=== PATIENT | female | born 1955 | race African-American/Black ===

== ENCOUNTER 2019-12-06 13:21 | Emergency (ER) | payer OTHER ==
[~2019-12-06] VITALS: Ht 172.7 cm; Wt 95.5 kg
[2019-12-06] MEDS ORDERED: ACET-2142 PO (13:33)
[2019-12-06] MEDS ORDERED: AMLO-258 PO (13:33)
[2019-12-06] MEDS ORDERED: CLON0.2T PO (13:33)
[2019-12-06] MEDS ORDERED: GABA-1181 PO (13:33)
[2019-12-06] MEDS ORDERED: HYDR200T4 PO (13:33)
[2019-12-06 15:57] VITALS: BP 128/80
== END 2019-12-06 15:59 | disposition home or self-care (01) ==
LOC: EMS 13:26
DX: L08.89 Other specified local infections of the skin and subcutaneous tissue (principal); I10 Essential (primary) hypertension; F17.290 Nicotine dependence, other tobacco product, uncomplicated; Z88.2 Allergy status to sulfonamides; Z79.899 Other long term (current) drug therapy
CPT/HCPCS: 99406

== ENCOUNTER 2019-12-08 10:47 | Emergency (ER) | payer OTHER ==
[~2019-12-08] VITALS: Ht 170.2 cm; Wt 101.8 kg
[~2019-12-08 10:47] MED LIST: ACET-2142 PO; AMLO-258 PO; CLON0.2T PO; GABA-1181 PO; HYDR200T4 PO
[2019-12-08 11:37] LABS: BASOPHILS % (AUTO) 0.6 % (0.0-2.0); EOSINOPHILS % (AUTO) 0.6 % (1.0-6.0); HEMOGLOBIN 14.6 g/dL (12.0-16.0); LYMPHOCYTES # (AUTO) 0.8 K/uL (1.0-4.8); MEAN CORPUSCULAR HEMOGLOBIN 27.7 pg (26.0-34.0); MEAN CORPUSCULAR HGB CONC 33.1 G/dL (31.0-37.0); MEAN CORPUSCULAR VOLUME 84 fL (80-100); MONOCYTES # (AUTO) 0.4 K/uL (0.1-1.0); MONOCYTES % (AUTO) 7.2 % (2.0-9.0); NEUTROPHILS % (AUTO) 76.6 % (40.0-70.0); PLATELET COUNT (AUTO) 188 K/uL (150-450); RED BLOOD CELL COUNT(AUTO) 5.26 MIL/uL (4.00-5.20); RED CELL DISTRIBUTION WIDTH 13.5 % (11.5-14.5)
[2019-12-08 11:45] LABS: ANION GAP 12 mmol/L (8-16); CALCIUM, TOTAL 8.5 mg/dL (8.8-10.5); CARBON DIOXIDE 26 mmol/L (22-29); CHLORIDE 104 mmol/L (98-107); CREATININE 1.05 mg/dL (0.60-1.30); GLOMERULAR FILTR. RATE CALC > 60 mL/min (>60); GLUCOSE,RANDOM 102 mg/dL (70-110); POTASSIUM 3.4 mmol/L (3.5-5.1); SODIUM SERUM 142 mmol/L (136-145); UREA NITROGEN, BLOOD 13 mg/dL (7-18)
[2019-12-08 11:52] LABS: ALANINE AMINOTRANSFERASE 15 U/L (12-78); ALBUMIN 3.7 g/dL (3.4-5.0); ALKALINE PHOSPHATASE 55 U/L (46-116); ASPARTATE AMINOTRANSFERASE 14 U/L (15-37); BILIRUBIN,TOTAL 0.4 mg/dL (0.1-1.0); SALICYLATE 8.9 mg/dL (2.8-20.0); TOTAL PROTEIN, SERUM 7.5 g/dL (6.4-8.2)
[2019-12-08 11:53] LABS: ACETAMINOPHEN < 2 mcg/mL (10-30)
[2019-12-08 13:04] VITALS: BP 141/78
== END 2019-12-08 13:07 | disposition home or self-care (01) ==
LOC: EMS 10:56
DX: T36.1X1A Poisoning by cephalosporins and other beta-lactam antibiotics, accidental (unintentional), initial encounter (principal); R11.2 Nausea with vomiting, unspecified; I10 Essential (primary) hypertension; Z88.2 Allergy status to sulfonamides; Z79.899 Other long term (current) drug therapy; Y92.89 Other specified places as the place of occurrence of the external cause
CPT/HCPCS: 36415; 80053; 85025; 99283; G0480; G0481

== ENCOUNTER 2019-12-31 11:34 | Emergency (ER) | payer OTHER ==
[~2019-12-31] VITALS: Ht 172.7 cm; Wt 90.9 kg
[~2019-12-31 11:34] MED LIST changes: -ACET-2142 PO
[2019-12-31 11:37] VITALS: BP 112/79
[2019-12-31] MEDS ORDERED: CEPHALEXIN MONOHYDRATE 500 MG CAPSULE PO ONE (14:00)
== END 2019-12-31 14:40 | disposition home or self-care (01) ==
LOC: EMS 11:39
DX: L97.529 Non-pressure chronic ulcer of other part of left foot with unspecified severity (principal)

== ENCOUNTER 2020-01-14 14:36 | Inpatient (IN) | payer OTHER ==
[~2020-01-14] VITALS: Ht 172.7 cm; Wt 96.0 kg
[2020-01-14] MEDS ORDERED: ACET-2142 PO (14:45)
[2020-01-14] MEDS ORDERED: GABA-1181 PO (14:45)
[2020-01-14] MEDS ORDERED: IBUPROFEN 400 MG TABLET PO ONE (16:00)
[2020-01-14] MEDS ORDERED: MORPHINE SULFATE 15 MG IR TABLET PO ONE (16:00)
[2020-01-14] MEDS ORDERED: MORPHINE SULFATE 4 MG/ML SYRINGE IVP ONE (16:15)
[2020-01-14 16:32] LABS: ANION GAP 6 mmol/L (8-16); CALCIUM, TOTAL 8.9 mg/dL (8.8-10.5); CARBON DIOXIDE 28 mmol/L (22-29); CHLORIDE 102 mmol/L (98-107); CREATININE 0.98 mg/dL (0.60-1.30); GLOMERULAR FILTR. RATE CALC > 60 mL/min (>60); GLUCOSE,RANDOM 85 mg/dL (70-110); POTASSIUM 4.1 mmol/L (3.5-5.1); SODIUM SERUM 136 mmol/L (136-145); UREA NITROGEN, BLOOD 6 mg/dL (7-18)
[2020-01-14 16:33] LABS: BASOPHILS % (AUTO) 0.8 % (0.0-2.0); EOSINOPHILS % (AUTO) 0.9 % (1.0-6.0); HEMATOCRIT 36.3 % (36-46); LYMPHOCYTES # (AUTO) 1.4 K/uL (1.0-4.8); LYMPHOCYTES % (AUTO) 18.9 % (22.0-44.0); MEAN CORPUSCULAR HEMOGLOBIN 27.5 pg (26.0-34.0); MEAN CORPUSCULAR VOLUME 83 fL (80-100); MONOCYTES # (AUTO) 0.8 K/uL (0.1-1.0); MONOCYTES % (AUTO) 10.9 % (2.0-9.0); NEUTROPHILS # (AUTO) 5.1 K/uL (1.8-7.7); NEUTROPHILS % (AUTO) 68.5 % (40.0-70.0); PLATELET COUNT (AUTO) 310 K/uL (150-450); RED BLOOD CELL COUNT(AUTO) 4.36 MIL/uL (4.00-5.20); RED CELL DISTRIBUTION WIDTH 13.5 % (11.5-14.5)
[2020-01-14 16:38] LABS: ALANINE AMINOTRANSFERASE 19 U/L (12-78); ALBUMIN 2.8 g/dL (3.4-5.0); ALKALINE PHOSPHATASE 63 U/L (46-116); ASPARTATE AMINOTRANSFERASE 17 U/L (15-37); BILIRUBIN,TOTAL 0.4 mg/dL (0.1-1.0); PROTHROMBIN TIME 10.3 SEC (9.4-11.6); TOTAL PROTEIN, SERUM 7.4 g/dL (6.4-8.2)
[2020-01-14] MEDS ORDERED: ASPIRIN 81 MG CHEWABLE TABLET PO ONE (19:00)
[2020-01-14] MEDS ORDERED: ONDANSETRON HCL 4 MG/2 ML VIAL IVP PRN ×2 (19:15→19:45)
[2020-01-14] MEDS ORDERED: ACETAMINOPHEN 325 MG TABLET PO PRN ×2 (19:15→19:45)
[2020-01-14] MEDS ORDERED: ASPIRIN 325 MG TABLET PO ONE (19:15)
[2020-01-14] MEDS ORDERED: 0.9% SODIUM CHLORIDE 10 ML SYRINGE IVP PRN (19:15)
[2020-01-14] MEDS: CloNIDine HCL 0.2 MG TABLET PO SCH (21:00)
[2020-01-14] MEDS: GABAPENTIN 300 MG CAPSULE PO SCH (21:00)
[2020-01-14 21:39] VITALS: BP 111/74
[2020-01-14] MEDS: MORPHINE SULFATE 2 MG/ML SYRINGE IVP PRN (22:07)
[2020-01-15] VITALS (7 sets, daily range): BP systolic 112–140; BP diastolic 66–79
[2020-01-15] MEDS: HEPARIN SODIUM,PORCINE 5,000 UNITS/ML VIAL SQ SCH ×3 (00:21→15:20)
[2020-01-15] MEDS: ACETAMINOPHEN/CODEINE 300-60 MG TABLET PO PRN ×2 (04:32→19:58)
[2020-01-15] MEDS ORDERED: PNEUMOCOCCAL VACCINE POLYVALENT 0.5 ML VIAL [PPSV23] IM ONE (06:00)
[2020-01-15] MEDS: HYDROXYCHLOROQUINE SULFATE 200 MG TABLET PO SCH (08:22)
[2020-01-15] MEDS: GABAPENTIN 300 MG CAPSULE PO SCH ×2 (08:26→19:58)
[2020-01-15] MEDS: ATORVASTATIN CALCIUM 40 MG TABLET PO SCH (08:31)
[2020-01-15] MEDS: AmLODIPine BESYLATE 10 MG TABLET PO SCH (08:31)
[2020-01-15] MEDS: ASPIRIN 81 MG CHEWABLE TABLET PO SCH (08:31)
[2020-01-15] MEDS: MORPHINE SULFATE 2 MG/ML SYRINGE IVP PRN ×3 (08:32→20:54)
[2020-01-15] MEDS: CloNIDine HCL 0.2 MG TABLET PO SCH (09:00)
[2020-01-15] MEDS: NICOTINE 21 MG/24 HOUR PATCH TD SCH (11:50)
[2020-01-15] MEDS: ATORVASTATIN CALCIUM 20 MG TABLET PO SCH (19:57)
[2020-01-16 00:27] VITALS: BP 149/96
[2020-01-16] MEDS: MORPHINE SULFATE 2 MG/ML SYRINGE IVP PRN ×4 (00:29→20:49)
[2020-01-16] MEDS: HEPARIN SODIUM,PORCINE 5,000 UNITS/ML VIAL SQ SCH ×4 (00:29→23:25)
[2020-01-16 04:00] VITALS: BP 158/89
[2020-01-16 07:47] LABS: BAND NEUTROPHILS % (MANUAL) 0 % (0-5)
[2020-01-16 07:51] LABS: HEMATOCRIT 38.5 % (36-46); HEMOGLOBIN 12.9 g/dL (12.0-16.0); MEAN CORPUSCULAR HEMOGLOBIN 27.9 pg (26.0-34.0); MEAN CORPUSCULAR HGB CONC 33.5 G/dL (31.0-37.0); MEAN CORPUSCULAR VOLUME 83 fL (80-100); PLATELET COUNT (AUTO) 318 K/uL (150-450); RED BLOOD CELL COUNT(AUTO) 4.61 MIL/uL (4.00-5.20); RED CELL DISTRIBUTION WIDTH 13.4 % (11.5-14.5)
[2020-01-16 08:14] LABS: ANION GAP 8 mmol/L (8-16); CARBON DIOXIDE 27 mmol/L (22-29); CHLORIDE 102 mmol/L (98-107); CHOL/HDL RATIO 2.4 (3.9-5.7); CHOLESTEROL 125 mg/dL (131-200); CREATININE 0.88 mg/dL (0.60-1.30); GLOMERULAR FILTR. RATE CALC > 60 mL/min (>60); GLUCOSE,RANDOM 90 mg/dL (70-110); HDL CHOLESTEROL 53 mg/dL (40-60); LDL CHOL (CALC.) 59 mg/dL (0-130); POTASSIUM 3.8 mmol/L (3.5-5.1); SODIUM SERUM 137 mmol/L (136-145); TRIGLYCERIDES 65 mg/dL (15-150); UREA NITROGEN, BLOOD 6 mg/dL (7-18); URIC ACID 4.6 mg/dL (2.6-7.2)
[2020-01-16 08:34] LABS: ERYTHROCYTE SEDIMENTATION RATE 24 MM/HR (0-20)
[2020-01-16 08:46] LABS: LYMPHOCYTES % (MANUAL) 17 % (22-44); MONOCYTES % (MANUAL) 8 % (2-9); SEGMENTED NEUTROPHILS % 75 % (40-70)
[2020-01-16 09:05] VITALS: BP 147/98
[2020-01-16] MEDS: GABAPENTIN 300 MG CAPSULE PO SCH ×2 (09:11→20:49)
[2020-01-16] MEDS: HYDROXYCHLOROQUINE SULFATE 200 MG TABLET PO SCH (09:11)
[2020-01-16] MEDS: ATORVASTATIN CALCIUM 40 MG TABLET PO SCH (09:11)
[2020-01-16] MEDS: AmLODIPine BESYLATE 10 MG TABLET PO SCH (09:11)
[2020-01-16] MEDS: ASPIRIN 81 MG CHEWABLE TABLET PO SCH (09:11)
[2020-01-16] MEDS: NICOTINE 21 MG/24 HOUR PATCH TD SCH (09:12)
[2020-01-16 11:21] VITALS: BP 152/77
[2020-01-16 19:15] VITALS: BP 137/86
[2020-01-16] MEDS: ATORVASTATIN CALCIUM 20 MG TABLET PO SCH (20:49)
[2020-01-17] VITALS (10 sets, daily range): BP systolic 119–164; BP diastolic 58–99
[2020-01-17 07:04] LABS: COVID AG,FIA SOURCE NASAL SWAB
[2020-01-17] MEDS ORDERED: SODIUM CHLORIDE 0.9% 1,000 ML IV ONE (08:00)
[2020-01-17] MEDS: HEPARIN SODIUM,PORCINE 5,000 UNITS/ML VIAL SQ SCH ×2 (08:00→18:27)
[2020-01-17] MEDS: GABAPENTIN 300 MG CAPSULE PO SCH ×2 (08:25→20:11)
[2020-01-17] MEDS: AmLODIPine BESYLATE 10 MG TABLET PO SCH (08:26)
[2020-01-17] MEDS: HYDROXYCHLOROQUINE SULFATE 200 MG TABLET PO SCH (08:26)
[2020-01-17] MEDS: NICOTINE 21 MG/24 HOUR PATCH TD SCH (08:30)
[2020-01-17] MEDS: ASPIRIN 81 MG CHEWABLE TABLET PO SCH (08:51)
[2020-01-17] MEDS: MORPHINE SULFATE 2 MG/ML SYRINGE IVP PRN ×2 (09:41→22:29)
[2020-01-17] MEDS ORDERED: MethylPREDNISolone SOD SUCC 125 MG/2 ML VIAL IVP STA (10:30)
[2020-01-17] MEDS ORDERED: DIAZEPAM 10 MG TABLET PO ONE (12:30)
[2020-01-17] MEDS ORDERED: DiphenhydrAMINE HCL 25 MG CAPSULE PO ONE (12:30)
[2020-01-17] MEDS: ATORVASTATIN CALCIUM 40 MG TABLET PO SCH (12:43)
[2020-01-17] MEDS ORDERED: FentaNYL CITRATE-PF 100 MCG/2 ML VIAL ONE ×2 (13:11→14:42)
[2020-01-17] MEDS ORDERED: MIDAZOLAM HCL 2 MG/2 ML VIAL ONE ×4 (13:12→15:33)
[2020-01-17] MEDS ORDERED: NITROGLYCERIN 50 MG/D5% WATER 250 ML ONE (13:12)
[2020-01-17] MEDS ORDERED: LIDOCAINE/PF 1% 30 ML VIAL ONE (13:12)
[2020-01-17] MEDS ORDERED: SODIUM BICARBONATE 50 MEQ/50 ML VIAL ONE (13:12)
[2020-01-17] MEDS ORDERED: IODIXANOL 320 MG/ML 100 ML VIAL ONE (13:12)
[2020-01-17] MEDS ORDERED: HEPARIN SODIUM 1000 UNITS/NS 1,000 ML ONE (13:12)
[2020-01-17] MEDS ORDERED: LIDOCAINE 1% 30 ML/SOD BICARB 8.4% 4 ML SQ ONE (14:45)
[2020-01-17] MEDS ORDERED: IODIXANOL 320 MG/ML 100 ML VIAL IARTER ONE (14:45)
[2020-01-17] MEDS ORDERED: FentaNYL CITRATE-PF 100 MCG/2 ML VIAL IVP ONE ×5 (14:45→16:00)
[2020-01-17] MEDS ORDERED: HEPARIN SODIUM 1000 UNITS/NS 1,000 ML IARTER ONE (14:45)
[2020-01-17] MEDS ORDERED: MIDAZOLAM HCL 2 MG/2 ML VIAL IVP ONE ×5 (14:45→16:00)
[2020-01-17] MEDS ORDERED: IODIXANOL 320 MG/ML 50 ML VIAL ONE (15:13)
[2020-01-17] MEDS ORDERED: HEPARIN SODIUM,PORCINE 5,000 UNITS/ML VIAL IVP ONE ×2 (15:15→15:30)
[2020-01-17] MEDS: ATORVASTATIN CALCIUM 20 MG TABLET PO SCH (20:11)
[2020-01-18] VITALS (13 sets, daily range): BP systolic 128–177; BP diastolic 64–108
[2020-01-18] MEDS: HEPARIN SODIUM,PORCINE 5,000 UNITS/ML VIAL SQ SCH ×4 (00:43→23:14)
[2020-01-18 07:07] LABS: HIV 1-2 SCREEN 4TH GEN W/RFLX Non Reactive (Non Reactive)
[2020-01-18 07:16] LABS: ANION GAP 8 mmol/L (8-16); CALCIUM, TOTAL 9.7 mg/dL (8.8-10.5); CARBON DIOXIDE 27 mmol/L (22-29); CHLORIDE 102 mmol/L (98-107); CREATININE 1.05 mg/dL (0.60-1.30); GLOMERULAR FILTR. RATE CALC > 60 mL/min (>60); GLUCOSE,RANDOM 101 mg/dL (70-110); POTASSIUM 4.1 mmol/L (3.5-5.1); SODIUM SERUM 137 mmol/L (136-145); UREA NITROGEN, BLOOD 10 mg/dL (7-18)
[2020-01-18 07:21] LABS: BASOPHILS % (AUTO) 0.4 % (0.0-2.0); EOSINOPHILS % (AUTO) 0 % (1.0-6.0); HEMATOCRIT 39.6 % (36-46); HEMOGLOBIN 13.3 g/dL (12.0-16.0); LYMPHOCYTES # (AUTO) 1.2 K/uL (1.0-4.8); LYMPHOCYTES % (AUTO) 8.7 % (22.0-44.0); MEAN CORPUSCULAR HEMOGLOBIN 27.8 pg (26.0-34.0); MEAN CORPUSCULAR HGB CONC 33.5 G/dL (31.0-37.0); MEAN CORPUSCULAR VOLUME 83 fL (80-100); MONOCYTES # (AUTO) 1.3 K/uL (0.1-1.0); MONOCYTES % (AUTO) 9.2 % (2.0-9.0); NEUTROPHILS # (AUTO) 11.5 K/uL (1.8-7.7); NEUTROPHILS % (AUTO) 81.7 % (40.0-70.0); PLATELET COUNT (AUTO) 316 K/uL (150-450); RED BLOOD CELL COUNT(AUTO) 4.78 MIL/uL (4.00-5.20); RED CELL DISTRIBUTION WIDTH 13.3 % (11.5-14.5)
[2020-01-18] MEDS: MORPHINE SULFATE 2 MG/ML SYRINGE IVP PRN ×4 (07:28→23:11)
[2020-01-18] MEDS: CloNIDine HCL 0.1 MG TABLET PO PRN (07:34)
[2020-01-18] MEDS: ASPIRIN 81 MG CHEWABLE TABLET PO SCH (08:09)
[2020-01-18] MEDS: GABAPENTIN 300 MG CAPSULE PO SCH ×2 (08:09→19:26)
[2020-01-18] MEDS: AmLODIPine BESYLATE 10 MG TABLET PO SCH (08:09)
[2020-01-18] MEDS: NICOTINE 21 MG/24 HOUR PATCH TD SCH (08:09)
[2020-01-18] MEDS: HYDROXYCHLOROQUINE SULFATE 200 MG TABLET PO SCH (10:40)
[2020-01-18] MEDS: ATORVASTATIN CALCIUM 20 MG TABLET PO SCH (19:26)
[2020-01-19] VITALS (19 sets, daily range): BP systolic 110–164; BP diastolic 59–108
[2020-01-19] MEDS: SODIUM CHLORIDE 0.9% 1,000 ML IV SCH (03:12)
[2020-01-19] MEDS: MORPHINE SULFATE 2 MG/ML SYRINGE IVP PRN ×3 (04:54→20:01)
[2020-01-19 06:44] LABS: BAND NEUTROPHILS % (MANUAL) 0 % (0-5)
[2020-01-19 06:52] LABS: HEMATOCRIT 36.9 % (36-46); HEMOGLOBIN 12.9 g/dL (12.0-16.0); MEAN CORPUSCULAR HEMOGLOBIN 29.1 pg (26.0-34.0); MEAN CORPUSCULAR HGB CONC 35.1 G/dL (31.0-37.0); MEAN CORPUSCULAR VOLUME 83 fL (80-100); PLATELET COUNT (AUTO) 270 K/uL (150-450); RED BLOOD CELL COUNT(AUTO) 4.45 MIL/uL (4.00-5.20); RED CELL DISTRIBUTION WIDTH 13.3 % (11.5-14.5)
[2020-01-19 07:06] LABS: ANION GAP 4 mmol/L (8-16); CALCIUM, TOTAL 8.8 mg/dL (8.8-10.5); CARBON DIOXIDE 31 mmol/L (22-29); CHLORIDE 100 mmol/L (98-107); CREATININE 0.92 mg/dL (0.60-1.30); GLOMERULAR FILTR. RATE CALC > 60 mL/min (>60); GLUCOSE,RANDOM 84 mg/dL (70-110); POTASSIUM 3.6 mmol/L (3.5-5.1); SODIUM SERUM 135 mmol/L (136-145); UREA NITROGEN, BLOOD 10 mg/dL (7-18)
[2020-01-19] MEDS ORDERED: IODIXANOL 320 MG/ML 100 ML VIAL ONE ×5 (07:17→08:20)
[2020-01-19] MEDS ORDERED: HEPARIN SODIUM 1000 UNITS/NS 1,000 ML ONE (07:18)
[2020-01-19] MEDS ORDERED: LIDOCAINE/PF 1% 30 ML VIAL ONE (07:18)
[2020-01-19] MEDS ORDERED: SODIUM BICARBONATE 50 MEQ/50 ML VIAL ONE (07:18)
[2020-01-19] MEDS ORDERED: DiphenhydrAMINE HCL 50 MG/ML VIAL IVP ONE (07:30)
[2020-01-19] MEDS: HYDROXYCHLOROQUINE SULFATE 200 MG TABLET PO SCH (07:36)
[2020-01-19] MEDS: HEPARIN SODIUM,PORCINE 5,000 UNITS/ML VIAL SQ SCH (07:37)
[2020-01-19] MEDS: GABAPENTIN 300 MG CAPSULE PO SCH ×2 (07:37→19:55)
[2020-01-19] MEDS: AmLODIPine BESYLATE 10 MG TABLET PO SCH (07:37)
[2020-01-19] MEDS: MULTIVITAMINS WITH MINERALS, THERAPEUTIC TABLET PO SCH (07:37)
[2020-01-19] MEDS: ASPIRIN 81 MG CHEWABLE TABLET PO SCH (07:37)
[2020-01-19] MEDS ORDERED: NITROGLYCERIN 50 MG/D5% WATER 250 ML ONE (08:22)
[2020-01-19 08:29] LABS: LYMPHOCYTES % (MANUAL) 12 % (22-44); MONOCYTES % (MANUAL) 15 % (2-9); SEGMENTED NEUTROPHILS % 73 % (40-70)
[2020-01-19] MEDS ORDERED: BUPIVACAINE HCL/PF 0.5% 10 ML VIAL ONE ×2 (08:44→10:12)
[2020-01-19] MEDS ORDERED: LIDOCAINE 1% 30 ML/SOD BICARB 8.4% 4 ML SQ ONE (10:15)
[2020-01-19] MEDS ORDERED: IODIXANOL 320 MG/ML 150 ML VIAL IARTER ONE (10:15)
[2020-01-19] MEDS ORDERED: HEPARIN SODIUM 1000 UNITS/NS 1,000 ML IARTER ONE (10:15)
[2020-01-19] MEDS ORDERED: NITROGLYCERIN/D5W 50 MG/250 ML IV BOTTLE ICOR ONE ×4 (10:15→11:15)
[2020-01-19] MEDS ORDERED: SODIUM CHLORIDE 0.9% 500 ML IV ONE (11:30)
[2020-01-19] MEDS ORDERED: AmLODIPine BESYLATE 5 MG TABLET PO ONE (12:00)
[2020-01-19] MEDS: NICOTINE 21 MG/24 HOUR PATCH TD SCH (12:08)
[2020-01-19] MEDS: ATORVASTATIN CALCIUM 20 MG TABLET PO SCH (19:55)
[2020-01-20] VITALS (8 sets, daily range): BP systolic 121–171; BP diastolic 64–103
[2020-01-20] MEDS: MORPHINE SULFATE 2 MG/ML SYRINGE IVP PRN ×4 (00:24→19:54)
[2020-01-20] MEDS ORDERED: KETAMINE HCL 50 MG/ML 10 ML VIAL IVP ONE (05:33)
[2020-01-20] MEDS ORDERED: MIDAZOLAM HCL 2 MG/2 ML VIAL IVP ONE (05:33)
[2020-01-20] MEDS ORDERED: RINGERS SOLUTION,LACTATED 1,000 ML IV ONE ×2 (06:26→07:00)
[2020-01-20 06:37] LABS: BASOPHILS % (AUTO) 0.7 % (0.0-2.0); EOSINOPHILS % (AUTO) 0.8 % (1.0-6.0); HEMATOCRIT 37.2 % (36-46); HEMOGLOBIN 12.8 g/dL (12.0-16.0); LYMPHOCYTES # (AUTO) 1.5 K/uL (1.0-4.8); LYMPHOCYTES % (AUTO) 15.2 % (22.0-44.0); MEAN CORPUSCULAR HEMOGLOBIN 28.7 pg (26.0-34.0); MEAN CORPUSCULAR HGB CONC 34.4 G/dL (31.0-37.0); MEAN CORPUSCULAR VOLUME 83 fL (80-100); MONOCYTES # (AUTO) 1.3 K/uL (0.1-1.0); MONOCYTES % (AUTO) 13.7 % (2.0-9.0); NEUTROPHILS # (AUTO) 6.8 K/uL (1.8-7.7); NEUTROPHILS % (AUTO) 69.6 % (40.0-70.0); PLATELET COUNT (AUTO) 249 K/uL (150-450); RED BLOOD CELL COUNT(AUTO) 4.46 MIL/uL (4.00-5.20); RED CELL DISTRIBUTION WIDTH 13.3 % (11.5-14.5)
[2020-01-20] MEDS ORDERED: BUPIVACAINE HCL/PF 0.25% 30 ML VIAL ONE (06:47)
[2020-01-20 06:48] LABS: ANION GAP 5 mmol/L (8-16); CALCIUM, TOTAL 8.4 mg/dL (8.8-10.5); CARBON DIOXIDE 28 mmol/L (22-29); CHLORIDE 102 mmol/L (98-107); CREATININE 0.91 mg/dL (0.60-1.30); GLOMERULAR FILTR. RATE CALC > 60 mL/min (>60); GLUCOSE,RANDOM 90 mg/dL (70-110); POTASSIUM 3.8 mmol/L (3.5-5.1); SODIUM SERUM 135 mmol/L (136-145); UREA NITROGEN, BLOOD 8 mg/dL (7-18)
[2020-01-20] MEDS ORDERED: SODIUM CHLORIDE 0.9% 1,000 ML ONE (06:48)
[2020-01-20] MEDS ORDERED: VANCOMYCIN HCL 1 GM/VIAL ONE (06:48)
[2020-01-20] MEDS ORDERED: LIDOCAINE/PF 1% 30 ML VIAL ONE (06:48)
[2020-01-20] MEDS ORDERED: SODIUM CL IRRIG SOLN BAG 3,000 ML IRRIG ONE (06:48)
[2020-01-20] MEDS ORDERED: BACITRACIN 50,000 UNITS/VIAL ONE (06:48)
[2020-01-20] MEDS ORDERED: SODIUM CHLORIDE 0.9% 10 ML ONE (06:49)
[2020-01-20] MEDS ORDERED: CHLORHEXIDINE GLUCONATE 4% 118 ML TOPICAL LIQUID TP ONE (07:30)
[2020-01-20] MEDS ORDERED: SUGAMMADEX SODIUM 200 MG/2 ML VIAL IVP ONE (07:54)
[2020-01-20] MEDS ORDERED: FentaNYL CITRATE-PF 100 MCG/2 ML VIAL IVP PRN (08:00)
[2020-01-20] MEDS: OXYGEN THERAPY IH SCH ×2 (08:00→19:59)
[2020-01-20] MEDS ORDERED: MEPERIDINE-PF 25 MG/ML VIAL IVP PRN (08:00)
[2020-01-20] MEDS ORDERED: HYDROmorphone 2 MG/ML SYRINGE IVP PRN (08:00)
[2020-01-20] MEDS: MULTIVITAMINS WITH MINERALS, THERAPEUTIC TABLET PO SCH (09:58)
[2020-01-20] MEDS: ASPIRIN 81 MG CHEWABLE TABLET PO SCH (09:58)
[2020-01-20] MEDS: AmLODIPine BESYLATE 10 MG TABLET PO SCH (09:58)
[2020-01-20] MEDS: GABAPENTIN 300 MG CAPSULE PO SCH ×2 (09:58→19:53)
[2020-01-20] MEDS: HYDROXYCHLOROQUINE SULFATE 200 MG TABLET PO SCH (09:58)
[2020-01-20] MEDS: NICOTINE 21 MG/24 HOUR PATCH TD SCH (09:58)
[2020-01-20] MEDS ORDERED: RINGERS SOLUTION,LACTATED 1,000 ML IV SCH (10:45)
[2020-01-20] MEDS: ACETAMINOPHEN/CODEINE 300-60 MG TABLET PO PRN (11:57)
[2020-01-20] MEDS: HEPARIN SODIUM,PORCINE 5,000 UNITS/ML VIAL SQ SCH (17:35)
[2020-01-20] MEDS: SODIUM CHLORIDE 0.9% 1,000 ML IV SCH (17:35)
[2020-01-20] MEDS: CloNIDine HCL 0.1 MG TABLET PO PRN (17:39)
[2020-01-20] MEDS: ATORVASTATIN CALCIUM 20 MG TABLET PO SCH (19:53)
[2020-01-21] VITALS (11 sets, daily range): BP systolic 110–139; BP diastolic 67–85
[2020-01-21] MEDS: HEPARIN SODIUM,PORCINE 5,000 UNITS/ML VIAL SQ SCH ×4 (00:30→23:58)
[2020-01-21] MEDS: MORPHINE SULFATE 2 MG/ML SYRINGE IVP PRN ×6 (00:30→23:58)
[2020-01-21] MEDS ORDERED: FentaNYL CITRATE-PF 100 MCG/2 ML VIAL IVP ONE ×2 (05:30→05:31)
[2020-01-21] MEDS ORDERED: ONDANSETRON HCL 4 MG/2 ML VIAL IVP ONE (05:31)
[2020-01-21] MEDS ORDERED: LIDOCAINE/PF 2% 5 ML SYRINGE IVP ONE (05:31)
[2020-01-21] MEDS ORDERED: KETAMINE HCL 50 MG/ML 10 ML VIAL IVP ONE (05:31)
[2020-01-21] MEDS ORDERED: MIDAZOLAM HCL 2 MG/2 ML VIAL IVP ONE (05:31)
[2020-01-21] MEDS ORDERED: PROPOFOL 1% 20 ML VIAL IVP ONE (05:31)
[2020-01-21] MEDS: ACETAMINOPHEN/CODEINE 300-60 MG TABLET PO PRN ×3 (08:07→22:06)
[2020-01-21] MEDS: HYDROXYCHLOROQUINE SULFATE 200 MG TABLET PO SCH (08:08)
[2020-01-21] MEDS: MULTIVITAMINS WITH MINERALS, THERAPEUTIC TABLET PO SCH (08:09)
[2020-01-21] MEDS: ASPIRIN 81 MG CHEWABLE TABLET PO SCH (08:09)
[2020-01-21] MEDS: GABAPENTIN 300 MG CAPSULE PO SCH ×2 (08:09→19:44)
[2020-01-21] MEDS: AmLODIPine BESYLATE 10 MG TABLET PO SCH (08:10)
[2020-01-21] MEDS: NICOTINE 21 MG/24 HOUR PATCH TD SCH (08:10)
[2020-01-21] MEDS: ATORVASTATIN CALCIUM 20 MG TABLET PO SCH (19:44)
[2020-01-21] MEDS: SODIUM CHLORIDE 0.9% 1,000 ML IV SCH (19:45)
[2020-01-22] MEDS: MORPHINE SULFATE 2 MG/ML SYRINGE IVP PRN ×2 (04:12→08:19)
[2020-01-22 04:45] VITALS: BP 135/75
[2020-01-22] MEDS: AmLODIPine BESYLATE 10 MG TABLET PO SCH (07:52)
[2020-01-22] MEDS: ASPIRIN 81 MG CHEWABLE TABLET PO SCH (07:52)
[2020-01-22] MEDS: HYDROXYCHLOROQUINE SULFATE 200 MG TABLET PO SCH (07:52)
[2020-01-22] MEDS: ACETAMINOPHEN/CODEINE 300-60 MG TABLET PO PRN (07:52)
[2020-01-22] MEDS: GABAPENTIN 300 MG CAPSULE PO SCH (07:52)
[2020-01-22] MEDS: MULTIVITAMINS WITH MINERALS, THERAPEUTIC TABLET PO SCH (07:52)
[2020-01-22] MEDS: HEPARIN SODIUM,PORCINE 5,000 UNITS/ML VIAL SQ SCH (07:53)
[2020-01-22] MEDS: NICOTINE 21 MG/24 HOUR PATCH TD SCH (07:53)
[2020-01-22 08:08] VITALS: BP 140/89
[2020-01-22] MEDS ORDERED: CLIN300C3 PO (09:03)
[2020-01-22] MEDS ORDERED: ASPI-728 PO (09:03)
[2020-01-22] MEDS ORDERED: CEPH-582 PO (09:03)
[2020-01-22] MEDS ORDERED: ATOR20TA65 PO (09:03)
== END 2020-01-22 11:40 | disposition home health service (06) | DRG 169 ==
LOC: EMS 14:36 → 5S 19:42 → 6N 01-16 19:00
PROVIDERS: ADMIT Internal Medicine; ATTEND Internal Medicine
PROC: B4101ZZ Fluoroscopy of Abdominal Aorta using Low Osmolar Contrast (ICD-10-PCS; principal; 2020-01-17)
PROC: B41G1ZZ Fluoroscopy of Left Lower Extremity Arteries using Low Osmolar Contrast (ICD-10-PCS; 2020-01-17)
PROC: 04CJ3ZZ Extirpation of Matter from Left External Iliac Artery, Percutaneous Approach (ICD-10-PCS; 2020-01-17)
PROC: 047 Lower Arteries, Dilation (ICD-10-PCS; 2020-01-17)
PROC: 04CL3ZZ Extirpation of Matter from Left Femoral Artery, Percutaneous Approach (ICD-10-PCS; 2020-01-18)
PROC: 04CN3ZZ Extirpation of Matter from Left Popliteal Artery, Percutaneous Approach (ICD-10-PCS; 2020-01-18)
PROC: 047L35Z Dilation of Left Femoral Artery with Two Drug-eluting Intraluminal Devices, Percutaneous Approach (ICD-10-PCS; 2020-01-18)
DX: I70.262 Atherosclerosis of native arteries of extremities with gangrene, left leg (principal); I99.8 Other disorder of circulatory system; I70.92 Chronic total occlusion of artery of the extremities; L97.529 Non-pressure chronic ulcer of other part of left foot with unspecified severity; M19.90 Unspecified osteoarthritis, unspecified site; I10 Essential (primary) hypertension; G89.4 Chronic pain syndrome; M06.9 Rheumatoid arthritis, unspecified; F17.210 Nicotine dependence, cigarettes, uncomplicated; F12.90 Cannabis use, unspecified, uncomplicated; E66.9 Obesity, unspecified; Z88.2 Allergy status to sulfonamides; Z91.041 Radiographic dye allergy status; Z68.32 Body mass index [BMI] 32.0-32.9, adult; Z79.899 Other long term (current) drug therapy; Z71.6 Tobacco abuse counseling; Z90.710 Acquired absence of both cervix and uterus; Z03.818 Encounter for observation for suspected exposure to other biological agents ruled out; E44.1 Mild protein-calorie malnutrition
CPT/HCPCS: 36200; 36245; 37205; 37229; 75630; 75716; 75962; 76001; 76937; 76942; 84550; 85007; 85651; 86038; 86225; 86235; 86256; 87070; 87205; 87389; 87426; 88305; 88311; 93005; 93925; J1200; J1644; J2250; J2270; J2405; J2704; J2930; J3010; J3370; J3490; J7030; J7040; J7120; Q9967; 36415-L1; 36415-TC; 71045-TC; 80061-TC; C1725; Z7610

== ENCOUNTER 2020-02-23 14:48 | Inpatient (IN) | payer OTHER ==
[~2020-02-23] VITALS: Ht 175.3 cm; Wt 100.0 kg
[~2020-02-23 14:48] MED LIST changes: +ACET-2142 PO; +ASPI-728 PO; +ATOR20TA65 PO; +CEPH-582 PO; +CLIN300C3 PO
[2020-02-23 16:11] LABS: BASOPHILS % (AUTO) 0.3 % (0.0-2.0); EOSINOPHILS % (AUTO) 1.1 % (1.0-6.0); HEMATOCRIT 38.9 % (36-46); HEMOGLOBIN 12.6 g/dL (12.0-16.0); LYMPHOCYTES # (AUTO) 2.3 K/uL (1.0-4.8); LYMPHOCYTES % (AUTO) 32.1 % (22.0-44.0); MEAN CORPUSCULAR HEMOGLOBIN 27.7 pg (26.0-34.0); MEAN CORPUSCULAR HGB CONC 32.5 G/dL (31.0-37.0); MEAN CORPUSCULAR VOLUME 85 fL (80-100); MONOCYTES # (AUTO) 0.5 K/uL (0.1-1.0); MONOCYTES % (AUTO) 7.3 % (2.0-9.0); NEUTROPHILS # (AUTO) 4.2 K/uL (1.8-7.7); NEUTROPHILS % (AUTO) 59.2 % (40.0-70.0); PLATELET COUNT (AUTO) 243 K/uL (150-450); RED BLOOD CELL COUNT(AUTO) 4.57 MIL/uL (4.00-5.20); RED CELL DISTRIBUTION WIDTH 14.9 % (11.5-14.5)
[2020-02-23] MEDS ORDERED: MAGNESIUM HYDROXIDE SUSPENSION 30 ML UDCUP PO PRN (16:15)
[2020-02-23] MEDS ORDERED: ACETAMINOPHEN 325 MG TABLET PO PRN (16:15)
[2020-02-23 16:39] LABS: CALCIUM, TOTAL 8.9 mg/dL (8.8-10.5); CREATININE 1.27 mg/dL (0.60-1.30); POTASSIUM 3.5 mmol/L (3.5-5.1)
[2020-02-23 16:44] LABS: ALBUMIN 3.3 g/dL (3.4-5.0); BILIRUBIN,TOTAL 0.2 mg/dL (0.1-1.0); TOTAL PROTEIN, SERUM 8.4 g/dL (6.4-8.2)
[2020-02-23] MEDS: MORPHINE SULFATE 2 MG/ML SYRINGE IVP PRN (16:50)
[2020-02-23 17:16] LABS: COVID AG,FIA SOURCE NASOPHARYNGEAL
[2020-02-23 17:45] VITALS: BP 144/93
[2020-02-23] MEDS: OxyCODONE HCL/ACETAMINOPHEN 5-325 MG TABLET PO PRN ×2 (18:11→23:56)
[2020-02-23 19:57] VITALS: BP 150/93
[2020-02-23] MEDS: DOCUSATE SODIUM 100 MG CAPSULE PO SCH (20:25)
[2020-02-23] MEDS: ATORVASTATIN CALCIUM 40 MG TABLET PO SCH (20:25)
[2020-02-23] MEDS: GABAPENTIN 300 MG CAPSULE PO SCH (20:25)
[2020-02-23] MEDS: HEPARIN SODIUM,PORCINE 5,000 UNITS/ML VIAL SQ SCH (23:51)
[2020-02-24] VITALS: BP 135/69
[2020-02-24] MEDS: MORPHINE SULFATE 2 MG/ML SYRINGE IVP PRN ×2 (03:13→08:34)
[2020-02-24 05:33] VITALS: BP 143/75
[2020-02-24] MEDS: HEPARIN SODIUM,PORCINE 5,000 UNITS/ML VIAL SQ SCH ×3 (08:33→23:16)
[2020-02-24] MEDS: AmLODIPine BESYLATE 10 MG TABLET PO SCH (08:33)
[2020-02-24] MEDS: GABAPENTIN 300 MG CAPSULE PO SCH ×2 (08:33→20:12)
[2020-02-24] MEDS: ASPIRIN 81 MG CHEWABLE TABLET PO SCH (08:34)
[2020-02-24] MEDS: HYDROXYCHLOROQUINE SULFATE 200 MG TABLET PO SCH (08:34)
[2020-02-24] MEDS: FAMOTIDINE 20 MG TABLET PO SCH (08:34)
[2020-02-24 08:54] VITALS: BP 154/84
[2020-02-24] MEDS: DOCUSATE SODIUM 100 MG CAPSULE PO SCH ×2 (09:00→20:12)
[2020-02-24 13:01] VITALS: BP 152/98
[2020-02-24] MEDS: OxyCODONE HCL/ACETAMINOPHEN 5-325 MG TABLET PO PRN ×3 (13:08→22:19)
[2020-02-24 19:54] VITALS: BP 146/93
[2020-02-24 19:54] LABS: GLUCOMETER DEV NAME(LOC) 4E.2; GLUCOSE,POINT OF CARE 67 MG/DL (70-110)
[2020-02-24] MEDS: ATORVASTATIN CALCIUM 40 MG TABLET PO SCH (20:12)
[2020-02-24 23:27] VITALS: BP 150/73
[2020-02-25 04:36] VITALS: BP 139/89
[2020-02-25] MEDS: OxyCODONE HCL/ACETAMINOPHEN 5-325 MG TABLET PO PRN ×2 (06:02→21:26)
[2020-02-25 08:36] VITALS: BP 129/83
[2020-02-25] MEDS: DOCUSATE SODIUM 100 MG CAPSULE PO SCH ×2 (09:00→20:14)
[2020-02-25] MEDS: ASPIRIN 81 MG CHEWABLE TABLET PO SCH (09:00)
[2020-02-25] MEDS: HYDROXYCHLOROQUINE SULFATE 200 MG TABLET PO SCH (09:00)
[2020-02-25] MEDS: AmLODIPine BESYLATE 10 MG TABLET PO SCH (09:00)
[2020-02-25] MEDS: GABAPENTIN 300 MG CAPSULE PO SCH ×2 (09:00→20:03)
[2020-02-25] MEDS: FAMOTIDINE 20 MG TABLET PO SCH (09:00)
[2020-02-25 10:27] LABS: EOSINOPHILS % (AUTO) 1.3 % (1.0-6.0); HEMATOCRIT 41.8 % (36-46); HEMOGLOBIN 13.6 g/dL (12.0-16.0); LYMPHOCYTES # (AUTO) 1.8 K/uL (1.0-4.8); LYMPHOCYTES % (AUTO) 31.4 % (22.0-44.0); MEAN CORPUSCULAR HEMOGLOBIN 27.4 pg (26.0-34.0); MEAN CORPUSCULAR HGB CONC 32.5 G/dL (31.0-37.0); MEAN CORPUSCULAR VOLUME 84 fL (80-100); MONOCYTES # (AUTO) 0.6 K/uL (0.1-1.0); MONOCYTES % (AUTO) 11.1 % (2.0-9.0); NEUTROPHILS # (AUTO) 3.1 K/uL (1.8-7.7); NEUTROPHILS % (AUTO) 55.2 % (40.0-70.0); PLATELET COUNT (AUTO) 243 K/uL (150-450); RED BLOOD CELL COUNT(AUTO) 4.95 MIL/uL (4.00-5.20); RED CELL DISTRIBUTION WIDTH 14.8 % (11.5-14.5)
[2020-02-25 10:46] LABS: ANION GAP 4 mmol/L (8-16); CALCIUM, TOTAL 9.1 mg/dL (8.8-10.5); CARBON DIOXIDE 28 mmol/L (22-29); CHLORIDE 103 mmol/L (98-107); CREATININE 1.03 mg/dL (0.60-1.30); GLOMERULAR FILTR. RATE CALC > 60 mL/min (>60); GLUCOSE,RANDOM 89 mg/dL (70-110); POTASSIUM 4.2 mmol/L (3.5-5.1); SODIUM SERUM 135 mmol/L (136-145); UREA NITROGEN, BLOOD 8 mg/dL (7-18)
[2020-02-25] MEDS ORDERED: RINGERS SOLUTION,LACTATED 1,000 ML IV ONE (11:00)
[2020-02-25 11:02] LABS: PROTHROMBIN TIME 10.6 SEC (9.4-11.6)
[2020-02-25 11:57] VITALS: BP 171/91
[2020-02-25] MEDS ORDERED: ONDANSETRON HCL 4 MG/2 ML VIAL IVP ONE (12:00)
[2020-02-25] MEDS ORDERED: METOPROLOL TARTRATE 5 MG/5 ML VIAL IVP ONE (12:00)
[2020-02-25] MEDS ORDERED: PROPOFOL 1% 20 ML VIAL IVP ONE (12:00)
[2020-02-25] MEDS ORDERED: FentaNYL CITRATE-PF 100 MCG/2 ML VIAL IVP ONE (12:00)
[2020-02-25] MEDS ORDERED: MIDAZOLAM HCL 2 MG/2 ML VIAL IVP ONE (12:00)
[2020-02-25] MEDS ORDERED: KETAMINE HCL 50 MG/ML 10 ML VIAL IVP ONE (12:00)
[2020-02-25] MEDS ORDERED: GLYCOPYRROLATE 0.2 MG/ML VIAL IM ONE (12:00)
[2020-02-25] MEDS ORDERED: LABETALOL HCL 5 MG/ML 20 ML VIAL IVP ONE (12:00)
[2020-02-25] MEDS ORDERED: SODIUM CL IRRIG SOLN BAG 3,000 ML IRRIG ONE (12:04)
[2020-02-25] MEDS ORDERED: VANCOMYCIN HCL 1 GM/VIAL ONE (12:04)
[2020-02-25] MEDS ORDERED: BACITRACIN 50,000 UNITS/VIAL ONE (12:06)
[2020-02-25] MEDS ORDERED: SODIUM CHLORIDE 0.9% 10 ML ONE (12:06)
[2020-02-25] MEDS ORDERED: CHLORHEXIDINE GLUCONATE 4% 118 ML TOPICAL LIQUID TP ONE (12:15)
[2020-02-25] MEDS ORDERED: FentaNYL CITRATE-PF 100 MCG/2 ML VIAL IVP PRN (12:45)
[2020-02-25] MEDS: OXYGEN THERAPY IH SCH ×2 (12:45→20:00)
[2020-02-25] MEDS ORDERED: MEPERIDINE-PF 25 MG/ML VIAL IVP PRN (12:45)
[2020-02-25] MEDS ORDERED: HYDROmorphone 2 MG/ML SYRINGE IVP PRN (12:45)
[2020-02-25] MEDS ORDERED: HYDROmorphone 2 MG/ML SYRINGE ONE (13:40)
[2020-02-25] MEDS ORDERED: LIDOCAINE/PF 1% 30 ML VIAL ONE (13:44)
[2020-02-25 15:47] VITALS: BP 142/79
[2020-02-25 19:24] VITALS: BP 145/85
[2020-02-25] MEDS: ATORVASTATIN CALCIUM 40 MG TABLET PO SCH (20:03)
[2020-02-25] MEDS: MORPHINE SULFATE 2 MG/ML SYRINGE IVP PRN (20:09)
[2020-02-26] MEDS: MORPHINE SULFATE 2 MG/ML SYRINGE IVP PRN ×4 (02:09→15:44)
[2020-02-26 02:14] VITALS: BP 150/81
[2020-02-26 06:25] VITALS: BP 144/78
[2020-02-26] MEDS: OXYGEN THERAPY IH SCH ×2 (08:00→20:00)
[2020-02-26] MEDS: GABAPENTIN 300 MG CAPSULE PO SCH ×2 (08:11→20:27)
[2020-02-26] MEDS: FAMOTIDINE 20 MG TABLET PO SCH (08:11)
[2020-02-26] MEDS: AmLODIPine BESYLATE 10 MG TABLET PO SCH (08:11)
[2020-02-26] MEDS: DOCUSATE SODIUM 100 MG CAPSULE PO SCH ×2 (08:11→20:30)
[2020-02-26] MEDS: ASPIRIN 81 MG CHEWABLE TABLET PO SCH (08:11)
[2020-02-26] MEDS: HYDROXYCHLOROQUINE SULFATE 200 MG TABLET PO SCH (08:12)
[2020-02-26 09:19] LABS: BASOPHILS % (AUTO) 0.4 % (0.0-2.0); EOSINOPHILS % (AUTO) 0.8 % (1.0-6.0); HEMATOCRIT 39.2 % (36-46); HEMOGLOBIN 12.5 g/dL (12.0-16.0); LYMPHOCYTES # (AUTO) 0.8 K/uL (1.0-4.8); LYMPHOCYTES % (AUTO) 11.1 % (22.0-44.0); MEAN CORPUSCULAR HEMOGLOBIN 27.3 pg (26.0-34.0); MEAN CORPUSCULAR VOLUME 85 fL (80-100); MONOCYTES # (AUTO) 0.6 K/uL (0.1-1.0); MONOCYTES % (AUTO) 7.8 % (2.0-9.0); NEUTROPHILS % (AUTO) 79.9 % (40.0-70.0); PLATELET COUNT (AUTO) 174 K/uL (150-450); RED CELL DISTRIBUTION WIDTH 15.3 % (11.5-14.5)
[2020-02-26 09:57] LABS: ANION GAP 9 mmol/L (8-16); CALCIUM, TOTAL 8.8 mg/dL (8.8-10.5); CARBON DIOXIDE 24 mmol/L (22-29); CHLORIDE 102 mmol/L (98-107); CREATININE 1.05 mg/dL (0.60-1.30); GLOMERULAR FILTR. RATE CALC > 60 mL/min (>60); GLUCOSE,RANDOM 152 mg/dL (70-110); POTASSIUM 3.9 mmol/L (3.5-5.1); SODIUM SERUM 135 mmol/L (136-145); UREA NITROGEN, BLOOD 9 mg/dL (7-18)
[2020-02-26 11:21] VITALS: BP 163/84
[2020-02-26] MEDS: OxyCODONE HCL/ACETAMINOPHEN 5-325 MG TABLET PO PRN ×3 (11:36→21:51)
[2020-02-26 16:00] VITALS: BP 155/97
[2020-02-26 20:24] VITALS: BP 123/79
[2020-02-26] MEDS: ATORVASTATIN CALCIUM 40 MG TABLET PO SCH (20:26)
[2020-02-27] MEDS: OxyCODONE HCL/ACETAMINOPHEN 5-325 MG TABLET PO PRN ×3 (02:27→11:14)
[2020-02-27 02:32] VITALS: BP 140/90
[2020-02-27 05:08] VITALS: BP 140/87
[2020-02-27 08:07] VITALS: BP 138/84
[2020-02-27] MEDS: GABAPENTIN 300 MG CAPSULE PO SCH (09:17)
[2020-02-27] MEDS: HYDROXYCHLOROQUINE SULFATE 200 MG TABLET PO SCH (09:17)
[2020-02-27] MEDS: AmLODIPine BESYLATE 10 MG TABLET PO SCH (09:17)
[2020-02-27] MEDS: FAMOTIDINE 20 MG TABLET PO SCH (09:18)
[2020-02-27] MEDS: DOCUSATE SODIUM 100 MG CAPSULE PO SCH (09:18)
[2020-02-27] MEDS: ASPIRIN 81 MG CHEWABLE TABLET PO SCH (09:18)
[2020-02-27] MEDS: MORPHINE SULFATE 2 MG/ML SYRINGE IVP PRN (09:30)
[2020-02-27] MEDS ORDERED: AMOX-426 PO (09:38)
[2020-02-27] MEDS ORDERED: AMOX TR/POT CLAV 500 MG/125 MG TABLET PO SCH (10:00)
[2020-02-27 11:49] VITALS: BP 133/83
[2020-02-27] MEDS ORDERED: ACET-2080 PO (12:36)
== END 2020-02-27 15:00 | disposition home health service (06) | DRG 305 ==
LOC: EMS 14:55 → 4E 17:13
PROVIDERS: ADMIT Internal Medicine; ATTEND Internal Medicine
PROC: 0Y6N0ZB Detachment at Left Foot, Partial 2nd Ray, Open Approach (ICD-10-PCS; 2020-02-25)
PROC: 0Y6N0ZC Detachment at Left Foot, Partial 3rd Ray, Open Approach (ICD-10-PCS; 2020-02-25)
PROC: 0Y6N0ZD Detachment at Left Foot, Partial 4th Ray, Open Approach (ICD-10-PCS; 2020-02-25)
PROC: 0Y6N0ZF Detachment at Left Foot, Partial 5th Ray, Open Approach (ICD-10-PCS; 2020-02-25)
PROC: 0Y6N0Z9 Detachment at Left Foot, Partial 1st Ray, Open Approach (ICD-10-PCS; principal; 2020-02-25 12:00)
DX: I73.9 Peripheral vascular disease, unspecified (principal); M06.9 Rheumatoid arthritis, unspecified; R65.10 Systemic inflammatory response syndrome (SIRS) of non-infectious origin without acute organ dysfunction; M32.9 Systemic lupus erythematosus, unspecified; G89.29 Other chronic pain; F17.210 Nicotine dependence, cigarettes, uncomplicated; I10 Essential (primary) hypertension; Z88.1 Allergy status to other antibiotic agents; Z88.8 Allergy status to other drugs, medicaments and biological substances; M19.90 Unspecified osteoarthritis, unspecified site; F12.90 Cannabis use, unspecified, uncomplicated; Z20.828 Contact with and (suspected) exposure to other viral communicable diseases
CPT/HCPCS: 87070; 87081; 87205; 87426; 97116; 97161; 97530; G0238; G0378; J1170; J1644; J2250; J2270; J2405; J2704; J3010; J3370; J3490; J7120

== ENCOUNTER 2021-01-01 10:56 | Inpatient (IN) | payer MEDICAID, OTHER ==
[~2021-01-01] VITALS: Ht 172.7 cm; Wt 91.6 kg
[~2021-01-01 10:56] MED LIST changes: +ACET-2080 PO; -ACET-2142 PO; +ACET-2247 PO; -ASPI-728 PO; -ATOR20TA65 PO; +CEFA2IV IV; -CEPH-582 PO; -CLIN300C3 PO; -CLON0.2T PO; +DOCU-270 PO; +HYDR200T38 PO; -HYDR200T4 PO; +LISI-894 PO; +PANT-31 PO; +[UNRECOGNIZED DRUG - CODE] IV
[2021-01-01 12:29] LABS: BASOPHILS % (AUTO) 0.6 % (0.0-2.0); EOSINOPHILS % (AUTO) 1.9 % (1.0-6.0); HEMATOCRIT 38.4 % (36-46); HEMOGLOBIN 12.7 g/dL (12.0-16.0); LYMPHOCYTES # (AUTO) 1.5 K/uL (1.0-4.8); LYMPHOCYTES % (AUTO) 23.3 % (22.0-44.0); MEAN CORPUSCULAR HEMOGLOBIN 28.4 pg (26.0-34.0); MEAN CORPUSCULAR HGB CONC 32.9 G/dL (31.0-37.0); MEAN CORPUSCULAR VOLUME 86 fL (80-100); MONOCYTES # (AUTO) 0.7 K/uL (0.1-1.0); MONOCYTES % (AUTO) 10.1 % (2.0-9.0); NEUTROPHILS # (AUTO) 4.2 K/uL (1.8-7.7); NEUTROPHILS % (AUTO) 64.1 % (40.0-70.0); PLATELET COUNT (AUTO) 189 K/uL (150-450); RED BLOOD CELL COUNT(AUTO) 4.46 MIL/uL (4.00-5.20); RED CELL DISTRIBUTION WIDTH 13.9 % (11.5-14.5)
[2021-01-01 12:40] LABS: CALCIUM, TOTAL 9.4 mg/dL (8.8-10.5); CREATININE 1.75 mg/dL (0.60-1.30); POTASSIUM 3.8 mmol/L (3.5-5.1)
[2021-01-01 12:44] LABS: INR 1.1 (0.9-1.1); PROTHROMBIN TIME 11.2 SEC (9.4-11.6)
[2021-01-01 12:46] LABS: ALBUMIN 3.6 g/dL (3.4-5.0); BILIRUBIN,TOTAL 0.5 mg/dL (0.1-1.0); TOTAL PROTEIN, SERUM 7.4 g/dL (6.4-8.2)
[2021-01-01 13:22] LABS: COVID AG,FIA SOURCE NASOPHARYNGEAL
[2021-01-01] MEDS ORDERED: ASPIRIN 325 MG TABLET PO ONE (14:15)
[2021-01-01 14:40] LABS: APPEARANCE,URINE CLEAR (CLEAR); BILIRUBIN,URINE NEGATIVE (NEGATIVE); GLUCOSE, URINE (UA) NEGATIVE (NEGATIVE); KETONES,URINE NEGATIVE (NEGATIVE); LEUKOCYTE ESTERASE ,URINE NEGATIVE (NEGATIVE); NITRATE,URINE NEGATIVE (NEGATIVE); OCCULT BLOOD,URINE NEGATIVE (NEGATIVE); PROTEIN,URINE NEGATIVE (NEGATIVE)
[2021-01-01 14:47] LABS: BACTERIA,URINE None Seen /HPF (None Seen); RBC,URINE None Seen /HPF (0-2); SQUAMOUS EPITHELIAL CELL,UR Few /LPF (None Seen); WBC,URINE None Seen /HPF (0-5)
[2021-01-01] MEDS ORDERED: DOCUSATE SODIUM 100 MG CAPSULE PO PRN (15:30)
[2021-01-01] MEDS ORDERED: BISACODYL 10 MG RECTAL RECTAL SUPPOSITORY PR PRN (15:30)
[2021-01-01] MEDS ORDERED: ONDANSETRON HCL 4 MG/2 ML VIAL IVP PRN (15:30)
[2021-01-01] MEDS ORDERED: ALBUTEROL SULFATE 2.5 MG/0.5 ML NEB SOLUTION NEB PRN (15:30)
[2021-01-01] MEDS ORDERED: ACETAMINOPHEN 325 MG TABLET PO PRN (15:30)
[2021-01-01] MEDS ORDERED: IPRATROPIUM BROMIDE 0.5 MG/2.5 ML NEB SOLUTION NEB PRN (15:30)
[2021-01-01] MEDS ORDERED: 0.9% SODIUM CHLORIDE 10 ML SYRINGE IVP PRN (15:30)
[2021-01-01] MEDS ORDERED: MAGNESIUM HYDROXIDE SUSPENSION 30 ML UDCUP PO PRN (15:30)
[2021-01-01] MEDS: GABAPENTIN 100 MG CAPSULE PO SCH (15:34)
[2021-01-01] MEDS: HEPARIN SODIUM,PORCINE 5,000 UNITS/ML VIAL SQ SCH (15:50)
[2021-01-01] MEDS: HYDROCODONE/ACETAMINOPHEN 5-325 MG TABLET PO PRN (15:53)
[2021-01-01 21:06] VITALS: BP 161/100
[2021-01-02] VITALS (7 sets, daily range): BP systolic 143–190; BP diastolic 58–90
[2021-01-02] MEDS: GABAPENTIN 100 MG CAPSULE PO SCH ×4 (00:35→23:11)
[2021-01-02] MEDS: HEPARIN SODIUM,PORCINE 5,000 UNITS/ML VIAL SQ SCH ×4 (00:35→23:11)
[2021-01-02] MEDS: HYDROCODONE/ACETAMINOPHEN 5-325 MG TABLET PO PRN ×4 (00:40→22:19)
[2021-01-02] MEDS ORDERED: AmLODIPine BESYLATE 5 MG TABLET PO ONE (05:45)
[2021-01-02 06:14] LABS: BASOPHILS % (AUTO) 0.6 % (0.0-2.0); EOSINOPHILS % (AUTO) 4.3 % (1.0-6.0); HEMATOCRIT 40.8 % (36-46); HEMOGLOBIN 13.4 g/dL (12.0-16.0); LYMPHOCYTES # (AUTO) 1.6 K/uL (1.0-4.8); LYMPHOCYTES % (AUTO) 26.2 % (22.0-44.0); MEAN CORPUSCULAR HEMOGLOBIN 28.3 pg (26.0-34.0); MEAN CORPUSCULAR HGB CONC 32.9 G/dL (31.0-37.0); MEAN CORPUSCULAR VOLUME 86 fL (80-100); MONOCYTES # (AUTO) 0.6 K/uL (0.1-1.0); MONOCYTES % (AUTO) 9.8 % (2.0-9.0); NEUTROPHILS # (AUTO) 3.6 K/uL (1.8-7.7); NEUTROPHILS % (AUTO) 59.1 % (40.0-70.0); PLATELET COUNT (AUTO) 182 K/uL (150-450); RED BLOOD CELL COUNT(AUTO) 4.74 MIL/uL (4.00-5.20); RED CELL DISTRIBUTION WIDTH 13.9 % (11.5-14.5)
[2021-01-02 06:49] LABS: ALBUMIN 3.6 g/dL (3.4-5.0); BILIRUBIN,TOTAL 0.4 mg/dL (0.1-1.0); CALCIUM, TOTAL 9.1 mg/dL (8.8-10.5); CHOL/HDL RATIO 2.1 (3.9-5.7); CREATININE 1.52 mg/dL (0.60-1.30); FREE T4 (FREE THYROXINE) 1.23 ng/dL (0.76-1.46); POTASSIUM 3.4 mmol/L (3.5-5.1); THYROID STIMULATING HORMONE 0.8 uIU/mL (0.36-3.74); TOTAL PROTEIN, SERUM 7.6 g/dL (6.4-8.2)
[2021-01-02] MEDS ORDERED: ASPIRIN 81 MG CHEWABLE TABLET PO SCH (09:00)
[2021-01-02] MEDS: PANTOPRAZOLE SODIUM 40 MG DR TABLET PO SCH (09:29)
[2021-01-02] MEDS ORDERED: POTASSIUM CHLORIDE 20 MEQ ER TABLET PO ONE (12:45)
[2021-01-02] MEDS: ATORVASTATIN CALCIUM 40 MG TABLET PO SCH (20:37)
[2021-01-03] MEDS: HYDROCODONE/ACETAMINOPHEN 5-325 MG TABLET PO PRN ×4 (04:04→20:56)
[2021-01-03 04:10] VITALS: BP 156/89
[2021-01-03 06:42] LABS: BASOPHILS % (AUTO) 0.7 % (0.0-2.0); EOSINOPHILS % (AUTO) 2.5 % (1.0-6.0); LYMPHOCYTES # (AUTO) 1.3 K/uL (1.0-4.8); LYMPHOCYTES % (AUTO) 22.1 % (22.0-44.0); MEAN CORPUSCULAR HEMOGLOBIN 28.3 pg (26.0-34.0); MEAN CORPUSCULAR HGB CONC 32.6 G/dL (31.0-37.0); MEAN CORPUSCULAR VOLUME 87 fL (80-100); MONOCYTES # (AUTO) 0.6 K/uL (0.1-1.0); MONOCYTES % (AUTO) 9.6 % (2.0-9.0); NEUTROPHILS # (AUTO) 3.9 K/uL (1.8-7.7); NEUTROPHILS % (AUTO) 65.1 % (40.0-70.0); PLATELET COUNT (AUTO) 139 K/uL (150-450); RED BLOOD CELL COUNT(AUTO) 4.95 MIL/uL (4.00-5.20); RED CELL DISTRIBUTION WIDTH 13.9 % (11.5-14.5)
[2021-01-03] MEDS: PANTOPRAZOLE SODIUM 40 MG DR TABLET PO SCH (08:22)
[2021-01-03] MEDS: HEPARIN SODIUM,PORCINE 5,000 UNITS/ML VIAL SQ SCH ×3 (08:22→23:14)
[2021-01-03] MEDS: GABAPENTIN 100 MG CAPSULE PO SCH ×3 (08:22→23:14)
[2021-01-03 08:48] VITALS: BP 148/107
[2021-01-03 08:54] LABS: ALBUMIN 3.7 g/dL (3.4-5.0); BILIRUBIN,TOTAL 0.4 mg/dL (0.1-1.0); CALCIUM, TOTAL 9.3 mg/dL (8.8-10.5); CREATININE 1.37 mg/dL (0.60-1.30); POTASSIUM 4.2 mmol/L (3.5-5.1); TOTAL PROTEIN, SERUM 8.1 g/dL (6.4-8.2)
[2021-01-03] MEDS: ASPIRIN 325 MG TABLET PO SCH (09:05)
[2021-01-03 09:28] LABS: CHOL/HDL RATIO 2.3 (3.9-5.7)
[2021-01-03 11:46] VITALS: BP 148/118
[2021-01-03] MEDS ORDERED: AmLODIPine BESYLATE 10 MG TABLET PO ONE (12:30)
[2021-01-03] MEDS ORDERED: ASPI-989 PO (12:57)
[2021-01-03] MEDS ORDERED: ATOR20TA86 PO (12:58)
[2021-01-03] MEDS ORDERED: CLOP75TA60 PO (12:58)
[2021-01-03 15:40] VITALS: BP 166/94
[2021-01-03 20:03] VITALS: BP 160/93
[2021-01-03] MEDS: ATORVASTATIN CALCIUM 40 MG TABLET PO SCH (20:23)
[2021-01-03] MEDS: CloNIDine HCL 0.1 MG TABLET PO SCH (20:24)
[2021-01-04] MEDS: HYDROCODONE/ACETAMINOPHEN 5-325 MG TABLET PO PRN ×3 (03:18→12:56)
[2021-01-04 06:12] VITALS: BP 165/95
[2021-01-04] MEDS ORDERED: CloNIDine HCL 0.1 MG TABLET PO ONE (06:45)
[2021-01-04 07:26] VITALS: BP 150/86
[2021-01-04] MEDS: HEPARIN SODIUM,PORCINE 5,000 UNITS/ML VIAL SQ SCH (08:20)
[2021-01-04] MEDS: GABAPENTIN 100 MG CAPSULE PO SCH (08:20)
[2021-01-04] MEDS: ASPIRIN 325 MG TABLET PO SCH (08:20)
[2021-01-04] MEDS: CloNIDine HCL 0.1 MG TABLET PO SCH (08:20)
[2021-01-04] MEDS: PANTOPRAZOLE SODIUM 40 MG DR TABLET PO SCH (08:21)
[2021-01-04] MEDS ORDERED: AmLODIPine BESYLATE 10 MG TABLET PO SCH (09:00)
[2021-01-04] MEDS ORDERED: LISINOPRIL 20 MG TABLET PO SCH (09:00)
[2021-01-04 11:18] VITALS: BP 146/94
[2021-01-04 14:51] VITALS: BP 150/76
== END 2021-01-04 16:05 | disposition home or self-care (01) | DRG 45 ==
LOC: EMS 10:56 → 5S 15:20
PROVIDERS: ADMIT Internal Medicine; ATTEND Internal Medicine
DX: I63.9 Cerebral infarction, unspecified (principal); N17.9 Acute kidney failure, unspecified; G81.94 Hemiplegia, unspecified affecting left nondominant side; G62.9 Polyneuropathy, unspecified; I11.9 Hypertensive heart disease without heart failure; M19.90 Unspecified osteoarthritis, unspecified site; F12.90 Cannabis use, unspecified, uncomplicated; F17.210 Nicotine dependence, cigarettes, uncomplicated; I73.9 Peripheral vascular disease, unspecified; Z88.2 Allergy status to sulfonamides; Z88.8 Allergy status to other drugs, medicaments and biological substances; Z20.822 Contact with and (suspected) exposure to COVID-19
CPT/HCPCS: 70450; 70544; 70547; 70551; 71045; 72148; 80053; 80061; 81001; 83690; 83880; 84145; 84439; 84443; 84484; 85025; 85610; 85730; 93005; 93306; 93880; 97116; 97162; 97166; 97530; 97535; 99285; J1644; 36415-L1; 36415-TC

== ENCOUNTER 2024-09-06 10:42 | Emergency (ER) | payer OTHER, MEDICAID ==
[~2024-09-06] VITALS: Ht 172.7 cm; Wt 88.9 kg
[~2024-09-06 10:42] MED LIST changes: -ACET-2080 PO; +ASPI-4 PO; +ATOR20TA PO; -CEFA2IV IV; +CLOP75TA83 PO; -DOCU-270 PO; +DOCU-385 PO; -[UNRECOGNIZED DRUG - CODE] IV
[2024-09-06 10:54] VITALS: TEMP 98.5
[2024-09-06 11:18] LABS: EOSINOPHILS % (AUTO) 2.4 % (1.0-6.0); HEMATOCRIT 41.3 % (36-46); HEMOGLOBIN 13.4 g/dL (12.0-16.0); LYMPHOCYTES # (AUTO) 1.5 K/uL (1.0-4.8); LYMPHOCYTES % (AUTO) 32.6 % (22.0-44.0); MEAN CORPUSCULAR HEMOGLOBIN 27.2 pg (26.0-34.0); MEAN CORPUSCULAR HGB CONC 32.5 G/dL (31.0-37.0); MEAN CORPUSCULAR VOLUME 84 fL (80-100); MONOCYTES # (AUTO) 0.4 K/uL (0.1-1.0); MONOCYTES % (AUTO) 9.2 % (2.0-9.0); NEUTROPHILS # (AUTO) 2.5 K/uL (1.8-7.7); NEUTROPHILS % (AUTO) 54.8 % (40.0-70.0); PLATELET COUNT (AUTO) 201 K/uL (150-450); RED BLOOD CELL COUNT(AUTO) 4.93 MIL/uL (4.00-5.20); RED CELL DISTRIBUTION WIDTH 13.5 % (11.5-14.5); WHITE BLOOD COUNT (AUTO) 4.6 K/uL (4.5-11.0)
[2024-09-06 11:26] LABS: CALCIUM, TOTAL 9.2 mg/dL (8.8-10.5); CREATININE 1.71 mg/dL (0.60-1.30)
[2024-09-06 13:25] VITALS: BP 133/74; PULSE 57; RESP 18; O2SAT 99
== END 2024-09-06 13:29 | disposition home or self-care (01) ==
LOC: EMS 11:31
DX: N93.9 Abnormal uterine and vaginal bleeding, unspecified (principal); M19.90 Unspecified osteoarthritis, unspecified site; I10 Essential (primary) hypertension; F12.90 Cannabis use, unspecified, uncomplicated; F17.210 Nicotine dependence, cigarettes, uncomplicated; Z98.890 Other specified postprocedural states; Z79.82 Long term (current) use of aspirin; Z79.02 Long term (current) use of antithrombotics/antiplatelets; Z88.8 Allergy status to other drugs, medicaments and biological substances; Z90.721 Acquired absence of ovaries, unilateral; Z88.2 Allergy status to sulfonamides; Z79.899 Other long term (current) drug therapy
CPT/HCPCS: 76830; 76856; 80048; 84702; 85025; 86850; 86900; 86901; 99284